=== PATIENT | male | born 1990 | race Hispanic/Latino ===

== ENCOUNTER 2017-06-02 21:51 | Emergency (ER) | payer SELFPAY ==
[2017-06-02 22:22] VITALS: PULSE 94; RESP 16; TEMP 98.9; O2SAT 98
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
[2017-06-02 23:12] VITALS: BP 119/90
== END 2017-06-02 23:11 | disposition home or self-care (01) ==
LOC: H.ER 21:51
DX: S09.93XA Unspecified injury of face, initial encounter (principal); Y04.0XXA Assault by unarmed brawl or fight, initial encounter; Y92.89 Other specified places as the place of occurrence of the external cause